=== PATIENT | female | born 1965 | race Caucasian/White ===

== ENCOUNTER 2022-04-23 10:51 | Emergency (ER) | payer OTHER, SELFPAY ==
[2022-04-23 11:08] VITALS: BP 145/85; PULSE 70; RESP 19; TEMP 36.6; O2SAT 98; BMI 24.9
[2022-04-23] MEDS: Lidocaine HCl 1 % MPF 2 ML VIAL INFILTRATI (12:08)
--- NOTE | 2022-04-23 12:11 | ED_ITS ---
HPI - Wound/Laceration General Chief Complaint: Wound/Laceration Stated Complaint: lump on neck Time Seen by Provider: 04/23/22 11:43 Source: patient Mode of arrival: ambulatory Limitations: no limitations History of Present Illness HPI narrative: This is a 56-year-old female who presents with redness and swelling on the right side of the neck for almost 2 weeks now. Patient reports she did have a lump there for quite time but over the last 2 weeks it has gotten more swollen and more red. She saw her primary care doctor and was placed on cephalexin and clindamycin. However continued symptoms. No fevers or chills. Related Data Previous Rx's Medication Instructions Recorded cephalexin 500 mg capsule 500 mg PO BID #10 caps 04/23/22 Allergies Allergy/AdvReac Type Severity Reaction Status Date / Time doxycycline Allergy Swelling Verified 04/23/22 11:45 Review of Systems Review of Systems: Yes all other systems are reviewed and are negative Constitutional: Constitutional: Reports no additional constitutional complaints, Denies body ache(s), Denies chills, Denies fever(s), Denies headache(s) and Denies weakness Eyes: Eyes: Reports no additional eye complaints and Denies change in vision ENT: Reports system reviewed and no additional complaints, except as documented, Denies dizziness, Denies headache(s), Denies nasal congestion, Denies nasal discharge and Denies neck pain Cardiovascular: Cardiovascular: Reports no additional cardiovascular complaints, Denies chest pain, Denies leg edema and Denies dyspnea Respiratory: Respiratory: Reports no additional respiratory complaints, Denies cough and Denies dyspnea Gastrointestinal: Gastrointestinal: Reports no additional gastrointestinal complaints, Denies abdominal pain, Denies diarrhea, Denies nausea and Denies vomiting Genitourinary: Genitourinary: Reports no additional female genitourinary complaints and Denies urinary incontinence Musculoskeletal: Musculoskeletal: Reports no additional musculoskeletal complaints, Denies back pain, Denies arthralgias, Denies joint swelling, Denies neck pain, Denies numbness and Denies tingling Integumentary/Breasts: Skin/Breast: Reports system reviewed and no additional complaints, except as docu, Reports erythema and Denies rash Neurologic: Reports system reviewed and no additional complaints, except as documented, Denies Abnormal speech present, Denies dizziness, Denies headache(s), Denies numbness, Denies tingling and Denies weakness [facility] Past Medical History Attestation statement: The following information was validated with the patient. Source: old records reviewed and nursing notes reviewed Social History Social History Advance Directives: No Advance Directives Information Provided: No Physical Exam Vital Signs: Vital Signs: Last Vital Signs Temp 98 F 04/23/22 11:08 Pulse 70 04/23/22 11:08 Resp 19 04/23/22 11:08 BP 145/85 H 04/23/22 11:08 Pulse Ox 98 04/23/22 11:08 BMI result Body Mass Index 24.9 Const: General: cooperative, healthy appearing, comfortable and no acute distress Orientation/consciousness: patient oriented x3 Limitations: no limitations HEENT: Head: Yes normal to inspection Head images: 1. There is a quarter-sized area of redness, swelling, central fluctuance and tenderness. There is no surrounding lymphadenopathy. Ears: hearing grossly normal bilaterally General nose exam: Normal external nose present Face and sinus: Yes normal facial exam Mouth: Normal oral and palatal mucosa present Throat: Yes posterior oropharynx normal Eyes: General: appearance normal, both eyes and all related structures Pupils: Equal, round and reactive pupils present Neck: Neck: Yes normal visual inspection Chest: Chest palpation & inspection: normal inspection of the chest Resp: Effort & Inspection: normal respiratory effort Auscultation: clear to auscultation bilaterally Cardio: Rate: regular rate Rhythm: regular rhythm Peripheral pulses: Peripheral pulses 2+ throughout GI: Inspection: Yes normal to inspection Palpation (GI): Soft to palpation and nontender Auscultation: normal bowel sounds Back/Spine/Pelvis: Thoracic/Lumbar Spine: thoracic and lumbar spine normal to inspection Skin: General skin exam: no rashes or lesions noted Neuro: General: patient oriented x3, no focal motor deficits and normal sensation to monofilament Cranial nerves: Yes Equal, round and reactive pupils present Cognition (Neuro): normal cognition Speech: No Abnormal speech present Gait exam (Neuro): Normal gait present Motor exam (neuro): 5/5 motor strength present throughout Extrem: General: Yes normal to inspection Course Course Course Narrative: See procedure note. Patient has underlying cyst. This will need removal by General surgery. Will refer. Will start patient on oral antibiotics. Reviewed worrisome signs and symptoms of when to return to the emergency room. Com fortable plan for discharge home. MDM - Wound/Laceration MDM Narrative Medical decision making narrative: Abscess to right neck. See procedure note for I&D Medical Records Attestation: I reviewed the patient's medical records. Lab Data Attestation: I reviewed the patient's lab results. Procedures Abscess I/D Site: neck Side (if applicable): right Local Anesthetic: lidocaine 1% Amount of anesthesia used (mL): 3 Technique: incised with blade Sent for culture/gram staining?: No Irrigation: No Packing used?: none Discharge Plan Discharge Clinical Impression: Abscess Patient Disposition: Home, Self-Care Instructions: Abscess (ED) Prescriptions: New cephalexin 500 mg capsule 500 mg PO BID Qty: 10 0RF Referrals: Ashutosh Gerardo MD [Physician] - 2 weeks Interventions: ED Discharge Assessment Last Done: 04/23/22 13:20 Discharge Date/Time: 04/23/22 13:21
== END 2022-04-23 13:21 | disposition home or self-care (01) ==
PROVIDERS: Emergency Provider Emergency Medicine; PCP Internal Medicine
DX: L02.11 Cutaneous abscess of neck (principal)
CPT/HCPCS: 10060; 99283; 99284

== ENCOUNTER 2024-02-14 13:06 | Outpatient (AMB) | payer OTHER, SELFPAY ==
--- NOTE | 2024-02-14 13:13 | AM.OFFWIN_ITS ---
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 patient states it started friday and it hurts to sit Patient Tobacco Use Status: Never used Tobacco Allergies doxycycline Allergy (Verified 02/14/24 13:18) Swelling Do you need a note to return to daycare/school/sports/work: No HPI HPI Comments History of Present Illness Details 50-year-old female who presents for abdo [place] pain. Patient has had lower abdominal pain since Friday. Patient has constant sometimes worse after eating also endorses diarrhea. Denies fever or chills. PFSH Social History Patient Tobacco Use Status: Never used Tobacco Physical Exam Vital Signs: Last Vital Signs Pulse 68 02/14/24 13:14 BP 122/70 02/14/24 13:14 Pulse Ox 98 02/14/24 13:14 BMI result Body Mass Index 25.7 Const General: cooperative, healthy appearing, no acute distress and alert Orientation/consciousness: patient oriented x3 Limitations: no limitations HEENT Head: Yes normal to inspection Ears: hearing grossly normal bilaterally General nose exam: Normal external nose present Resp Effort & Inspection: normal respiratory effort and able to speak in complete sentences Cardio Rate: regular rate GI Other: Exquisite left lower quadrant tenderness to palpation Skin General skin exam: no rashes or lesions noted Neuro General: patient oriented x3 Extrem General: Yes normal to inspection Assessment & Plan Assessment & Plan (1) Abdominal pain: Code(s): R10.9 - Unspecified abdominal pain Qualifiers: Abdominal location: left lower quadrant Qualified Code(s): R10.32 - Left lower quadrant pain Plan: Based on patient's findings symptoms of concern consideration would be diverticulitis. Positive consideration UTI verses other acute abdominal pathology. Given tenderness to palpation in the left lower quadrant would recommend patient presents to the emergency department for further evaluation and CT scan. Medications: Discontinued cephalexin Discontinued Reason: Patient Completed Course 500 mg PO BID 10 caps 0RF Coding Level of Care Code New Pt Level 3 (11256) Diagnoses Left lower quadrant abdominal pain R10.32 Abdominal location: left lower quadrant
[2024-02-14 13:14] VITALS: BP 122/70; PULSE 68; O2SAT 98; BMI 25.7
== END 2024-02-14 13:50 | disposition home or self-care (01) ==
PROVIDERS: PCP Internal Medicine; Visit Provider Physician Assistant
DX: R10.32 Left lower quadrant pain (principal)
CPT/HCPCS: 99203

== ENCOUNTER 2024-02-14 14:02 | Observation (INO) | payer OTHER, SELFPAY ==
[2024-02-14] VITALS (7 sets, daily range): BP systolic 109–147; BP diastolic 46–75; PULSE 82–123; RESP 14–18; TEMP 36.6–37.2; O2SAT 96–99; BMI 26.6
--- NOTE | ~2024-02-14 | CT_ITS ---
EXAMINATION: CT ABDOMEN AND PELVIS WITH CONTRAST CLINICAL INFORMATION: Abdominal pain COMPARISON: None TECHNIQUE: Multidetector volumetric CT imaging of the abdomen and pelvis was obtained after the administration of 85 mL of Omnipaque 300 intravenous contrast without immediate adverse reactions. Axial MIP volume rendering provided. Sagittal and coronal reformatted images were obtained. This CT examination was performed using dose optimization techniques as appropriate, variously including the following: *Automated exposure control *Adjustment of mA and/or kV according to patient size (this includes techniques or standardized protocols for targeted exams where dose is matched to indication/reason for exam; i.e. extremities or head) *Use of iterative reconstruction technique DLP: 597 mGy-cm FINDINGS: LUNGS: Calcified granulomas in the lung base. LIVER, GALLBLADDER, AND BILIARY TREE: The liver is normal in size, shape, and attenuation. There are no focal hepatic lesions. There is no intra or extrahepatic bile duct dilation. The gallbladder is unremarkable with no evidence of radiopaque gallstones, gallbladder wall thickening, or obvious pericholecystic inflammatory changes. PANCREAS: Unremarkable SPLEEN: Unremarkable ADRENAL GLANDS: Unremarkable KIDNEYS AND URETERS: The kidneys are normal in size, shape, and attenuation. No hydronephrosis, hydroureter, or calculi seen. No perinephric stranding. BLADDER: Unremarkable GASTROINTESTINAL TRACT: Sigmoid diverticulosis. No diverticulitis. The large and small bowel are normal in caliber. The appendix is borderline thickened with inflammatory stranding around the tip. ABDOMINAL WALL: No significant hernia is appreciated. LYMPH NODES: Normal PERITONEUM: No free intraperitoneal fluid or air. VASCULAR: Unremarkable PELVIC VISCERA: Unremarkable OSSEOUS STRUCTURES: Unremarkable CT/CT abdomen pelvis w IV con IMPRESSION: The appendix is borderline thickened with inflammatory stranding around the tip. Findings are concerning for early appendicitis. Electronically signed by: Uli Meade MD 02/14/2024 05:29 PM EDT
--- NOTE | 2024-02-14 14:19 | ED_ITS ---
HPI - Abdominal Pain General Chief Complaint: Abdominal Pain Stated Complaint: [facility] sent over for a Ct Time Seen by Provider: 02/14/24 16:25 Source: patient Mode of arrival: ambulatory Limitations: no limitations History of Present Illness ED Provider: Sandy Lovell PA-C HPI narrative: Patient is a 58 year old assigned female at with no reported medical history presenting to the emergency department today with abdominal pain. Patient states that over the last 3 days she has had left lower abdominal pain with diarrhea. Patient states that she was seen by her PCP and instructed to come to the ER for a CT scan. Patient denies any dizziness, lightheadedness, nausea, vomiting, fever, chills, blurry vision, double vision, loss of vision, chest pain, difficulty breathing, shortness of breath, back pain, night sweats, pain with urination, increased urinary frequency, increased urinary urgency, blood in her urine or stool, syncope or a near syncopal episode, recent trauma or falls, bowel incontinence, bladder incontinence, or any other complaints at this time. MD elicited complaint: abdominal pain Onset (ago): day(s) (3) Pain Consistency: constant Location: LLQ Radiation: none Relieving factors: nothing Associated symptoms: diarrhea Related Data Home Medications ?Medication ?Instructions ?Recorded ?Confirmed No Known Home Meds 02/14/24 02/14/24 Allergies Allergy/AdvReac Type Severity Reaction Status Date / Time doxycycline Allergy Swelling Verified 02/14/24 14:20 Review of Systems Constitutional: Reports no additional constitutional complaints, Denies chills, Denies fever(s) and Denies night sweats Eyes: Reports no additional eye complaints, Denies blurry vision, Denies change in vision, Denies diplopia, Denies eye discharge, Denies loss of vision and Denies eye pain Denies dizziness Cardiovascular: Reports no additional cardiovascular complaints, Denies chest pain, Denies lightheadedness, Denies Loss of Consciousness and Denies dyspnea Respiratory: Reports no additional respiratory complaints and Denies dyspnea Gastrointestinal: Reports no additional gastrointestinal complaints, Reports abdominal pain, Denies melena, Denies hematochezia, Denies change in bowel habits, Denies change in stool character and Reports diarrhea Genitourinary: Denies hematuria, Denies urinary frequency, Denies dysuria, Denies urinary incontinence, Denies urinary hesitancy and Denies urinary urgency Musculoskeletal: Reports no additional musculoskeletal complaints, Denies numbness and Denies tingling Denies dizziness, Denies loss of vision, Denies numbness and Denies tingling Psychiatric: Reports no additional psychiatric complaints Endocrine: Reports no additional endocrine complaints Hematologic/Lymphatic: Reports no additional hematologic/lymphatic complaints Allergic/Immunologic: Reports no additional allergic/immunologic complaints [facility] Past Medical History Attestation statement: The following information was validated with the patient. Source: old records reviewed and nursing notes reviewed Social History Social History Patient Tobacco Use Status: Never used Tobacco Smoked in Last 30 Days: No Use of substances other than those prescribed or required for medical reasons: No Advance Directives: No Advance Directives Information Provided: No Do you have a plan to hurt others: No Plan Patient : No Physical Exam ED Vital Signs: Vital Signs - 24 hr 02/14/24 14:19 02/14/24 16:22 02/14/24 16:25 Temperature 98.7 F 98.7 F 98.7 F Pulse Rate 123 H 82 84 Respiratory Rate 18 16 16 Blood Pressure 123/71 137/46 L 137/49 L Pulse Oximetry 99 98 97 Oxygen Delivery Method Room Air Room Air Room Air 02/14/24 16:43 02/14/24 18:00 Temperature 98.4 F Pulse Rate 82 Respiratory Rate 14 14 Blood Pressure 130/75 Pulse Oximetry 99 Oxygen Delivery Method Room Air BMI result Body Mass Index 26.6 Const General: cooperative, no acute distress, alert and awake Nutritional Appearance: well nourished Orientation/consciousness: patient oriented x3 Limitations: no limitations [facility] Head: Yes normal to inspection and Yes atraumatic Ears: hearing grossly normal bilaterally and external ears normal General nose exam: Normal external nose present, no nasal discharge noted and no epistaxis Face and sinus: Yes normal facial exam, No abrasion and No laceration Mouth: Normal oral and palatal mucosa present, no drooling and no muffled voice Eyes General: appearance normal, both eyes and all related structures Periorbital: periorbital findings normal Eyelids: Yes eyelids normal Conjunctivae: conjunctivae normal Pupils: Equal, round and reactive pupils present EOM: EOMs intact bilaterally Neck Neck: Yes normal visual inspection, Yes full ROM and Yes no lymphadenopathy Chest Chest palpation & inspection: normal inspection of the chest Resp Effort & Inspection: normal respiratory effort and able to speak in complete sentences GI Inspection: Yes normal to inspection Palpation (GI): Soft to palpation, not firm, Tenderness to palpation present (GI) in the LLQ, no guarding and not rigid Neuro General: patient oriented x3 and moves all extremities Cranial nerves: Yes Equal, round and reactive pupils present Cognition (Neuro): normal cognition Extrem General: Yes normal to inspection, Yes full ROM and Yes capillary refill normal Psych Appearance: grossly normal Mental Status: mental status grossly normal Affect: normal affect Attitude: cooperative Thought process: Normal thought process present Thought content: Normal thought content present Insight: Good insight present (Psych) Course Course Course Narrative: This is a rapid medical exam. Deferred additional HPI, ROS, PE to primary provider. 58 yo female here with LLQ abdominal pain, diarrhea since Friday, sent over from [facility] walk in with concern for diverticulitis. No vomiting/fever. No medical or abdominal surgical history. Will need labs, UA, likely CT JAMILAS -Sugey Reyes APRN Medical Decision Making Medical Decision Making MDM Narrative: Patient is a 58 year old assigned female at with no reported medical history presenting to the emergency department today with LLQ abdominal pain. Patient's physical exam was as noted in the physical exam portion of this note. Patient's blood work was unremarkable. Patient's urine showed no acute process. Patient's CT abd/pelvis showed early acute appendicitis. I spoke to Dr. Franco who recommended admission to his service. I explained my physical exam findings as well as all test results to the patient. I answered all questions asked by the patient. Patient verbalized agreement and understanding with this treatment plan and admission. Differential Diagnosis Differential Diagnoses: The differential diagnosis associated with the presentation includes appendicitis abdominal pain diverticulitis Admission/Observation Consideration of admission/observation: Escalation of care including admission/observation considered Patient admitted. Consult Healthcare Provider Management of the patient was discussed with: Javascript Front End Developer (spoke to Dr. Franco, the general surgeon, as noted in the MDM Rationale portion of this note.) Lab Data [facility] Lab Attestation statement: I reviewed the patient's lab results. My interpretation of these results are in the MDM Rationale portion of this note. 02/14/24 14:35 02/14/24 14:35 Labs: Lab Results 08/24/24 08/24/24 Range/Units 14:35 18:17 WBC 6.2 (4.8-10.8) X10*3/uL RBC 4.43 (4.20-5.50) X10*6/uL Hgb 14.1 (12.0-16.0) g/dl Hct 41.1 (37.0-47.0) % MCV 92.8 (80.0-98.0) fL MCH 31.8 (27.0-33.0) pg MCHC 34.3 (31.0-35.0) g/dl RDW 13.2 (11.0-16.0) % Plt Count 195 (160-400) X10*3/uL MPV 10.5 (9.4-12.3) fL Immature Gran % (Auto) 0.3 (0.0-0.4) % Neut % (Auto) 68.0 (45-73) % Lymph % (Auto) 16.4 L (20-40) % [place] % (Auto) 13.2 H (2-11) % Eos % (Auto) 1.8 (0-4) % Baso % (Auto) 0.3 (0-2) % Lymph # (Auto) 1.0 L (1.2-4.9) X10*3/uL [place] # (Auto) 0.8 (0.1-1.2) X10*3/uL Eos # (Auto) 0.1 (0.0-0.4) X10*3/uL Baso # (Auto) 0.0 (0.0-0.2) X10*3/uL Abs Immat Gran (auto) 0.02 (0.00-0.03) X10*3/uL Absolute Neuts (auto) 4.2 (2.0-8.3) x10*3/uL Absolute Nucleated RBC 0.000 (0.0-0.012) X10*3/uL Nucleated RBC % (auto) 0.0 (0.0-0.2) /100WBC Sodium 145 (135-145) mmol/L Potassium 4.2 (3.3-5.1) mmol/L Chloride 108 (96-108) mmol/L Carbon Dioxide 26 (22-29) mmol/L Anion Gap 15 (12-20) BUN 14 (9-16) mg/dL Creatinine 0.94 (0.5-1.4) mg/dL Estim Creat Clear Calc 60.4 Estimated GFR > 60 Random Glucose 96 (60-115) mg/dL Calcium 9.4 (8.4-10.2) mg/dL Total Bilirubin 0.6 (0.0-1.0) mg/dL Direct Bilirubin 0.2 (0.0-0.5) mg/dL AST 49 H (5-31) U/L ALT 45 H (0-31) U/L Alkaline Phosphatase 94 (39-117) U/L Total Protein 7.2 (6.5-8.0) g/dL Albumin 4.1 (3.5-5.0) g/dL Lipase 20 (8-78) U/L Urine Color Yellow Urine Appearance Clear Urine pH 5.5 (5.0-9.0) Ur Specific [place] >= 1.030 H (1.005-1.025) Urine Protein 30 (1+) H (Neg-Trace) mg/dL Urine Glucose (UA) Negative (Negative) mg/dL Urine Ketones Negative (Negative) mg/dL Urine Blood Negative (Negative) Urine Nitrite Positive H (Negative) Ur Leukocyte Esterase Negative (Negative) Urine RBC 3-5 H (0-2) /HPF Urine WBC 0-5 (0-5) /HPF Ur Squamous Epith Cells 3-5 (0-2) /HPF Urine Bacteria 4+ (None Seen) Hyaline Casts 0-2 (0-2) /LPF Independent Interpretation I performed an independent interpretation of an: CT Scan Interpretation: My interpretation is in agreement with the radiologist's impression of this imaging study. - EXAMINATION: CT ABDOMEN AND PELVIS WITH CONTRAST CLINICAL INFORMATION: Abdominal pain COMPARISON: None TECHNIQUE: Multidetector volumetric CT imaging of the abdomen and pelvis was obtained after the administration of 85 mL of Omnipaque 300 intravenous contrast without immediate adverse reactions. Axial MIP volume rendering provided. Sagittal and coronal reformatted images were obtained. This CT examination was performed using dose optimization techniques as appropriate, variously including the following: *Automated exposure control *Adjustment of mA and/or kV according to patient size (this includes techniques or standardized protocols for targeted exams where dose is matched to indication/reason for exam; i.e. extremities or head) *Use of iterative reconstruction technique DLP: 597 mGy-cm FINDINGS: LUNGS: Calcified granulomas in the lung base. LIVER, GALLBLADDER, AND BILIARY TREE: The liver is normal in size, shape, and attenuation. There are no focal hepatic lesions. There is no intra or extrahepatic bile duct dilation. The gallbladder is unremarkable with no evidence of radiopaque gallstones, gallbladder wall thickening, or obvious pericholecystic inflammatory changes. PANCREAS: Unremarkable SPLEEN: Unremarkable ADRENAL GLANDS: Unremarkable KIDNEYS AND URETERS: The kidneys are normal in size, shape, and attenuation. No hydronephrosis, hydroureter, or calculi seen. No perinephric stranding. BLADDER: Unremarkable GASTROINTESTINAL TRACT: Sigmoid diverticulosis. No diverticulitis. The large and small bowel are normal in caliber. The appendix is borderline thickened with inflammatory stranding around the tip. ABDOMINAL WALL: No significant hernia is appreciated. LYMPH NODES: Normal PERITONEUM: No free intraperitoneal fluid or air. VASCULAR: Unremarkable PELVIC VISCERA: Unremarkable OSSEOUS STRUCTURES: Unremarkable CT/CT abdomen pelvis w IV con IMPRESSION: The appendix is borderline thickened with inflammatory stranding around the tip. Findings are concerning for early appendicitis. Electronically signed by: Uli Meade MD 02/14/2024 05:29 PM EDT Dictated By: Uli Meade MD Signed By: Electronically signed by Uli Meade MD 02/14/24 8080 Radiology Impression Discussion of test interpretation with radiology: I have reviewed the radiologist's reading. Medications Administered Discontinued Medications Generic Name Dose Route Start Last Admin Trade Name Samantha PRN Reason Stop Dose Admin Ceftriaxone Sodium 1 gm/ 50 mls @ 100 mls/hr 02/14/24 17:39 02/14/24 18:25 Sodium Chloride IV 02/14/24 18:08 100 mls/hr ONCE ONE Administration Iohexol 85 ml 02/14/24 17:14 02/14/24 17:15 Iohexol 350 Mg/Ml 100 Ml Infus..Btl IV 02/14/24 17:15 85 ml ONCE ONE Administration Morphine Sulfate 4 mg 02/14/24 16:31 02/14/24 16:43 Morphine Sulfate 4 Mg/Ml Cartridge IVPUSH 02/14/24 16:32 4 mg ONCE ONE Administration Protocol Ondansetron HCl 4 mg 02/14/24 16:31 02/14/24 16:43 Ondansetron Hcl 4 Mg/2 Ml Vial IVPUSH 02/14/24 16:32 4 mg ONCE ONE Administration Critical Care Time Critical Care Time Critical Care Time: Yes Total Critical Care Time: 38 Attestation: I spent 38 minutes of Critical Care Time with this patient. This does not include time spent on separately reported billable procedures. Discharge Plan Discharge Clinical Impression: Acute appendicitis Patient Disposition: Admitted As Inpatient Print Language: Lao
[2024-02-14 14:39] LABS: MANUAL DIFF FLAG NO
[2024-02-14 14:42] LABS: Basophils Percent Auto 0.3 % (0-2); Eosinophils Absolute Auto 0.1 X10*3/uL (0.0-0.4); Eosinophils Percent Auto 1.8 % (0-4); Hematocrit 41.1 % (37.0-47.0); Hemoglobin 14.1 g/dl (12.0-16.0); Imm Gran Abs Auto 0.02 X10*3/uL (0.00-0.03); Imm Gran Pct Auto 0.3 % (0.0-0.4); Lymphocytes Percent Auto 16.4 % (20-40); Mean Corpuscular HGB Conc 34.3 g/dl (31.0-35.0); Mean Corpuscular Hemoglobin 31.8 pg (27.0-33.0); Mean Corpuscular Volume 92.8 fL (80.0-98.0); Mean Platelet Volume 10.5 fL (9.4-12.3); Monocytes Absolute Auto 0.8 X10*3/uL (0.1-1.2); Monocytes Percent Auto 13.2 % (2-11); Neutrophils Absolute Auto 4.2 x10*3/uL (2.0-8.3); Platelet Count 195 X10*3/uL (160-400); Red Blood Count 4.43 X10*6/uL (4.20-5.50); Red Cell Distribution Width 13.2 % (11.0-16.0); White Blood Count 6.2 X10*3/uL (4.8-10.8)
[2024-02-14 14:54] LABS: Alanine Aminotransferase 45 U/L (0-31); Albumin Level 4.1 g/dL (3.5-5.0); Alkaline Phosphatase 94 U/L (39-117); Anion Gap 15 (12-20); Aspartate Amino Transferase 49 U/L (5-31); Bilirubin Direct 0.2 mg/dL (0.0-0.5); Bilirubin Total 0.6 mg/dL (0.0-1.0); Blood Urea Nitrogen 14 mg/dL (9-16); Calcium 9.4 mg/dL (8.4-10.2); Carbon Dioxide 26 mmol/L (22-29); Chloride 108 mmol/L (96-108); Creatinine Clr Calc Pharmacy 60.4; Estimated Glomerular Filt Rate > 60; Glucose Random 96 mg/dL (60-115); Lipase 20 U/L (8-78); Potassium 4.2 mmol/L (3.3-5.1); Sodium 145 mmol/L (135-145); Total Protein 7.2 g/dL (6.5-8.0)
--- NOTE | 2024-02-14 16:36 | PC.NURSE ---
Pt comes to ED for Abd pain since Friday. Pain is 7/10 and cramping in nature to the LLQ. Denies any history of this type of pain prior to today. Last BM was today and was diarrhea. 20g LAC. Pt awaiting CT.
[2024-02-14] MEDS: Morphine Sulfate 4 MG/ML CARTRIDGE IVPUSH (16:43)
[2024-02-14] MEDS: ondansetron HCL 4 MG/2 ML VIAL IVPUSH (16:43)
[2024-02-14] MEDS: iohexoL 350 MG/ML 100 ML INFUS..BTL 85 ML IV (17:15)
[2024-02-14 18:23] LABS: Appearance Urine Clear; Color Urine Yellow; Glucose Urine UA Negative (Negative); Leukocyte Esterase Urine Negative (Negative); Nitrite Urine Positive (Negative); PH 5.5 (5.0-9.0); Specific Gravity - Urine >= 1.030 (1.005-1.025); UMIC TRIGGER UACC YES; Urine Blood Negative (Negative); Urine Ketones Negative (Negative); Urine Protein 30 (1+) mg/dL (Neg-Trace)
[2024-02-14] MEDS: cefTRIAXone sodium 1 GM in 0.9 % Sodium Chloride 50 ML IV (18:25)
--- NOTE | 2024-02-14 18:28 | PHA.MEDREC ---
Pharmacy Consult ? Medication Reconciliation Pharmacy has completed the medication reconciliation.
[2024-02-14 18:31] LABS: Bacteria Urine 4+ (None Seen); Hyaline Casts Urine 0-2 /LPF (0-2); UACC Culture Trigger YES; WBC Urine 0-5 /HPF (0-5)
[2024-02-14] MEDS: Lactated Ringers 1,000 ML 100 ML IVCONT (21:32)
[2024-02-14] MEDS: Acetaminophen 325 MG TABLET 650 MG PO (21:37)
[2024-02-15] VITALS (8 sets, daily range): BP systolic 121–139; BP diastolic 58–82; PULSE 70–90; RESP 16–18; TEMP 36.2–36.8; O2SAT 91–97; BMI 28.3
[2024-02-15] MEDS: Lactated Ringers 1,000 ML 100 ML IVCONT (07:27)
[2024-02-15] MEDS: 0.9 % Sodium Chloride Flush 3 ML SYRINGE IVFLUSH (07:28)
--- NOTE | 2024-02-15 13:07 | P.CONAN_ITS ---
HPI - Anesthesia Eval Consult details Narrative: aCUTE APPENDICITIS PMFSH Active Problems Active Problems: All Active Problems Acute appendicitis (Acute) Family History Family history of problems with anesthesia: No Surgical History History of Problems with Anesthesia: No Social History Social History Household Members: Spouse and Family Housing: House Do you presently have visiting nurse or other home services: No Patient Tobacco Use Status: Former Tobacco user Tobacco use type: Cigarette Smoked in Last 30 Days: No Patient Interested in Nicotine Replacement: No Patient Given Instructions on How to Stop Smoking: No Second Hand Smoke Exposure: No Use of substances other than those prescribed or required for medical reasons: No Currently Displaying Signs/Symptoms of Drug Intoxication Withdrawal: No Any prior treatment program specific to substance use: No Have you been hit, kicked, punched, or otherwise hurt by someone within the past year? If so, by whom?: No Do you feel safe in your current relationship?: Yes Is there a partner from a previous relationship who is making you feel unsafe now?: No Are you made to feel afraid or neglected: No Advance Directives: No Advance Directives Information Provided: No Advance Directives on File: No Do you have a plan to hurt others: No Plan Recently lost weight without trying: No Eating poorly because of decreased appetite: No Nutrition Risks: No Nutritional Risk Patient : No : No Poor oral hygiene: No Meds Allergies Allergy/AdvReac Type Severity Reaction Status Date / Time doxycycline Allergy Swelling Verified 02/14/24 14:20 Active Medications: Current Medications Acetaminophen (Acetaminophen 325 Mg Tablet) 650 mg PO Q6H PRN PRN Reason: Pain, Mild (Pain Scale 1-3), fever or headache Last Admin: 02/14/24 21:37 Dose: 650 mg Al Hydroxide/Mg Hydroxide (Magnesium Hydrox/Alum Hydrox 30 Ml Oral.Susp) 30 ml PO Q4H PRN PRN Reason: Heartburn Calcium Carbonate (Calcium Carbonate 750 Mg Tab.Chew) 750 mg PO Q4H PRN PRN Reason: Heartburn Hydromorphone HCl (Hydromorphone Hcl 0.5 Mg/0.5 Ml Syringe) 0.5 mg IVPUSH Q4H PRN; Protocol PRN Reason: Pain, Severe (Pain Scale 7-10) Lactated Ringer's (Lr) 1,000 mls @ 100 mls/hr IVCONT .Q10H COUNT INCLUDES THE [facility] Last Admin: 02/15/24 07:27 Dose: 100 mls/hr Magnesium Hydroxide (Milk Of Magnesia 30 Ml Oral.Susp) 30 ml PO DAILY PRN PRN Reason: Constipation Melatonin (Melatonin 3 Mg Tablet) 6 mg PO BEDTIME PRN PRN Reason: Insomnia Ondansetron HCl (Ondansetron Hcl 4 Mg/2 Ml Vial) 4 mg IVPUSH Q8H PRN PRN Reason: Nausea and Vomiting Sodium Chloride (0.9 % Sodium Chloride Flush 3 Ml Syringe) 3 ml IVFLUSH QSHIFT COUNT INCLUDES THE [facility] Last Admin: 02/15/24 07:28 Dose: 3 ml Home Medications ?Medication ?Instructions ?Recorded ?Confirmed ?Last Taken ?Type No Known Home Meds 02/14/24 02/14/24 Unknown History Exam Height,Weight and Vital Signs: Height 5 ft 3 in Weight 72.6 kg Last Vital Signs Temp 98.1 F 02/15/24 09:13 Pulse 72 02/15/24 09:13 Resp 16 02/15/24 09:13 BP 121/60 02/15/24 09:13 Pulse Ox 96 02/15/24 09:13 O2 Del Method Room Air 02/15/24 09:13 Pertinent Lab Results Pertinent Lab Results: Laboratory Tests 02/14/24 02/14/24 14:35 18:17 WBC 6.2 RBC 4.43 Hgb 14.1 Hct 41.1 MCV 92.8 MCH 31.8 MCHC 34.3 RDW 13.2 Plt Count 195 MPV 10.5 Immature Gran % (Auto) 0.3 Neut % (Auto) 68.0 Lymph % (Auto) 16.4 L Andrew % (Auto) 13.2 H Eos % (Auto) 1.8 Baso % (Auto) 0.3 Lymph # (Auto) 1.0 L Andrew # (Auto) 0.8 Eos # (Auto) 0.1 Baso # (Auto) 0.0 Abs Immat Gran (auto) 0.02 Absolute Neuts (auto) 4.2 Absolute Nucleated RBC 0.000 Nucleated RBC % (auto) 0.0 Sodium 145 Potassium 4.2 Chloride 108 Carbon Dioxide 26 Anion Gap 15 BUN 14 Creatinine 0.94 Estim Creat Clear Calc 60.4 Estimated GFR > 60 Random Glucose 96 Calcium 9.4 Total Bilirubin 0.6 Direct Bilirubin 0.2 AST 49 H ALT 45 H Alkaline Phosphatase 94 Total Protein 7.2 Albumin 4.1 Lipase 20 Urine Color Yellow Urine Appearance Clear Urine pH 5.5 Ur Specific [place] >= 1.030 H Urine Protein 30 (1+) H Urine Glucose (UA) Negative Urine Ketones Negative Urine Blood Negative Urine Nitrite Positive H Ur Leukocyte Esterase Negative Urine RBC 3-5 H Urine WBC 0-5 Ur Squamous Epith Cells 3-5 Urine Bacteria 4+ Hyaline Casts 0-2 Airway Mallampati Class: I Neck ROM: Full Denture: Upper and Lower Loose/Missing/Broken Teeth: No Heart: rrr Lungs: CTA Assessment and Plan Assessment Anesthesia Assessment: Anesthesia Plan Discussed and Chart Reviewed Final Anesthetic Review Family History of Problems with Anesthesia: No History of Problems with Anesthesia: No NPO: Yes ASA Class: I and Emergency Final Preanesthetic Review: No Changes in Pt Med Stat, Meds/Allgs Chart Reviewed, Consent Obtained/Reviewed and Anes Risks/Benef Reviewed Patient Risk: Low Procedure Risk: Intermediate Anesthetic Plan Anesthetic Plan: GA Disposition: Standard PACU
--- NOTE | 2024-02-15 13:11 | PM.HPGS ---
History of Present Illness History of Present Illness Date of Service: 02/15/24 Chief complaint: abd pain Narrative: Monica Cummings is a 58 year old female who presents with a proximally 2 to three-day history of progressively worsening lower abdominal pain. Because of progression of symptoms she presents to the emergency department. Workup by the staff demonstrated right lower quadrant tenderness and a CT scan consistent with early appendicitis. Patient is otherwise very healthy. She has no prior issues of GI complaints. This episode has some early diarrhea. She otherwise has regular bowel habits. No unusual contacts. No recent foreign travel. No new meds. No sick contacts Chart was reviewed and patient evaluate [facility] Social History Social History Household Members: Spouse and Family Housing: House Do you presently have visiting nurse or other home services: No Patient Tobacco Use Status: Former Tobacco user Tobacco use type: Cigarette Smoked in Last 30 Days: No Patient Interested in Nicotine Replacement: No Patient Given Instructions on How to Stop Smoking: No Second Hand Smoke Exposure: No Use of substances other than those prescribed or required for medical reasons: No Currently Displaying Signs/Symptoms of Drug Intoxication Withdrawal: No Any prior treatment program specific to substance use: No Have you been hit, kicked, punched, or otherwise hurt by someone within the past year? If so, by whom?: No Do you feel safe in your current relationship?: Yes Is there a partner from a previous relationship who is making you feel unsafe now?: No Are you made to feel afraid or neglected: No Advance Directives: No Advance Directives Information Provided: No Advance Directives on File: No Do you have a plan to hurt others: No Plan Recently lost weight without trying: No Eating poorly because of decreased appetite: No Nutrition Risks: No Nutritional Risk Patient : No : No Poor oral hygiene: No Meds Allergies Allergy/AdvReac Type Severity Reaction Status Date / Time doxycycline Allergy Swelling Verified 02/14/24 14:20 Active Medications: Current Medications Acetaminophen (Acetaminophen 325 Mg Tablet) 650 mg PO Q6H PRN PRN Reason: Pain, Mild (Pain Scale 1-3), fever or headache Last Admin: 02/14/24 21:37 Dose: 650 mg Al Hydroxide/Mg Hydroxide (Magnesium Hydrox/Alum Hydrox 30 Ml Oral.Susp) 30 ml PO Q4H PRN PRN Reason: Heartburn Calcium Carbonate (Calcium Carbonate 750 Mg Tab.Chew) 750 mg PO Q4H PRN PRN Reason: Heartburn Hydromorphone HCl (Hydromorphone Hcl 0.5 Mg/0.5 Ml Syringe) 0.5 mg IVPUSH Q4H PRN; Protocol PRN Reason: Pain, Severe (Pain Scale 7-10) Lactated Ringer's (Lr) 1,000 mls @ 100 mls/hr IVCONT .Q10H [facility] Last Admin: 02/15/24 07:27 Dose: 100 mls/hr Cefazolin Sodium/Dextrose (Ancef) 2 gm in 50 mls @ 100 mls/hr IV PREOP ONE Stop: 02/15/24 13:39 Magnesium Hydroxide (Milk Of Magnesia 30 Ml Oral.Susp) 30 ml PO DAILY PRN PRN Reason: Constipation Melatonin (Melatonin 3 Mg Tablet) 6 mg PO BEDTIME PRN PRN Reason: Insomnia Ondansetron HCl (Ondansetron Hcl 4 Mg/2 Ml Vial) 4 mg IVPUSH Q8H PRN PRN Reason: Nausea and Vomiting Sodium Chloride (0.9 % Sodium Chloride Flush 3 Ml Syringe) 3 ml IVFLUSH QSHIFT [facility] Last Admin: 02/15/24 07:28 Dose: 3 ml Home Medications ?Medication ?Instructions ?Recorded ?Confirmed ?Last Taken ?Type No Known Home Meds 02/14/24 02/14/24 Unknown History Physical Exam Vital Signs: Vital Signs: Last Vital Signs Temp 98.1 F 02/15/24 09:13 Pulse 72 02/15/24 09:13 Resp 16 02/15/24 09:13 BP 121/60 02/15/24 09:13 Pulse Ox 96 02/15/24 09:13 O2 Del Method Room Air 02/15/24 09:13 BMI result Body Mass Index 28.3 Chest: Other: Chest breath sounds bilaterally, HS 1 in 2 GI: Other: Mildly corpulent, soft. Localized right lower quadrant rebound tenderness. No evidence of any guarding, generalized rebound or rigidity. Results Results Labs: Short CBC 02/14/24 Range/Units 14:35 WBC 6.2 (4.8-10.8) X10*3/uL Hgb 14.1 (12.0-16.0) g/dl Hct 41.1 (37.0-47.0) % Plt Count 195 (160-400) X10*3/uL BMP 02/14/24 14:35 Sodium 145 Potassium 4.2 Chloride 108 Carbon Dioxide 26 BUN 14 Creatinine 0.94 Calcium 9.4 Liver Function 02/14/24 Range/Units 14:35 Total Bilirubin 0.6 (0.0-1.0) mg/dL Direct Bilirubin 0.2 (0.0-0.5) mg/dL AST 49 H (5-31) U/L ALT 45 H (0-31) U/L Alkaline Phosphatase 94 (39-117) U/L Albumin 4.1 (3.5-5.0) g/dL Urine 02/14/24 Range/Units 18:17 Urine Color Yellow Urine Appearance Clear Urine pH 5.5 (5.0-9.0) Ur Specific [place] >= 1.030 H (1.005-1.025) Urine Protein 30 (1+) H (Neg-Trace) mg/dL Urine Glucose (UA) Negative (Negative) mg/dL Assessment and Plan (1) Acute appendicitis: Qualifiers: Acute appendicitis type: unspecified acute appendicitis type Qualified Code(s): K35.80 - Unspecified acute appendicitis Status: Acute Plan Risks, benefits, alternatives laparoscopic possible open appendectomy were reviewed with the patient and included but not limited to bleeding, infection, numbness, pain, scarring, bowel or bladder injury or leak and the patient wishes to proceed. All questions answered. Arrangements were made for this as an add on for today. Quality Stroke Does the patient have a stroke diagnosis?: No VTE Prior VTE?: No VTE Risk Level:: Surgical - low VTE Device Contraindication: N/A - Device Ordered VTE Drug Contraindication: Treatment Not Indicated Procedures Date of Service Date of Service: 02/15/24
--- NOTE | 2024-02-15 14:15 | W.PM.OPN ---
Operative Note Operative Note Date of Service: 02/15/24 Narrative: Preoperative diagnosis: [] Acute appendicitis Postop diagnosis: [] The same Procedure [] laparoscopic appendectomy Surgeon: [] Salvador Child Psychology Teacher: [] Type of Anesthesia: [] General Indication for surgery: [] Distal portion of appendix edematous and inflamed. Situated in the right pelvic brim. No gross evidence of perforation. Moderately corpulent abdomen. Findings: [] Patient brought to the operating room, placed on operative table supine position, after an adequate level of general anesthesia was induced, the patient's abdomen was prepped and draped in usual sterile fashion. Using a supraumbilical curvilinear incision, Garcia technique was used to insufflate abdominal cavity to 15 mm of CO2. Lower midline suprapubic ports were placed under direct laparoscopic view, the patient placed in Trendelenburg position, and tilted to the left. Findings were as noted above. Appendix was grasped and brought onto the field. It is mesentery was sequentially taken down using double firing of ligature device. Appendix was then transected at the cecal base using endoscopic MARCIA stapler. Appendix was removed in a piecemeal fashion secondary to its macerated state and placed in Endo-Catch bag and retrieved through the umbilical port. Abdominal cavity was copiously irrigated and secured hemostasis. All ports removed under direct laparoscopic view. Wounds were closed in the following manner; umbilical wound has fascia reapproximated using interrupted 0 Vicryl suture. Skin wounds were closed using subcuticular 4-0 Vicryl sutures followed by Steri-Strips and sterile dressings. Wounds were infiltrated 0.5% Marcaine at completion. Sponge, needle, and instrument counts reported correct. Patient tolerated the procedure well and emerged from anesthesia stable condition. EBL minimal
--- NOTE | 2024-02-15 15:04 | P.DS_ITS ---
DS: Providers Provider Date of Service: 02/15/24 Date of admission: 02/14/24 21:07 Date of discharge: 02/15/24 Primary care physician: Ashutosh Asif MD Attending physician on admission: Aly Franco Attending physician on discharge: Aly Franco DS: Diagnosis Discharge Diagnosis (1) Acute appendicitis: Status: Acute DS: Summary Hospital Course Hospital Course: HPI AT ADMISSION: Monica Cummings is a 58 year old female who presents with a proximally 2 to three-day history of progressively worsening lower abdominal pain. Because of progression of symptoms she presents to the emergency department. Workup by the staff demonstrated right lower quadrant tenderness and a CT scan consistent with early appendicitis. Patient is otherwise very healthy. She has no prior issues of GI complaints. This episode has some early diarrhea. She otherwise has regular bowel habits. No unusual contacts. No recent foreign travel. No new meds. No sick contacts. Chart was reviewed and patient evaluated. HOSPITAL COURSE: The patient was admitted to the surgical service for further treatment of the acute appendicitis. She elected to proceed with laparoscopic appendectomy. She was added onto the OR schedule for that day. On 02/15/24, a laparoscopic appendectomy was performed by Dr. Franco without complication. The patient tolerated the procedure well. She had an uncomplicated recovery course. Later in the afternoon following the procedure, she felt well and was tolerating a solid diet without nausea or vomiting, had good pain control and was ambulating without difficulty. She was hemodynamically stable. Her abdomen was benign with appropriate post op tenderness. She felt ready for discharge. She was discharged to home on 02/15/24 in stable condition. She is to follow up in the office in 1 week. Status at Discharge Functional status at discharge: independent ambulation Overall status at discharge: patient is progressing back to baseline Time Attestation Discharge Coordination Time (in mins): 30 Quality: Safe Use of Opioids Does Pt have an Active Cancer Diagnosis on the Problem List?: No Quality: Stroke Does the patient have a stroke diagnosis?: No Physical Exam Vital Signs: Vital Signs: Last Vital Signs Temp 97.3 F 02/15/24 15:06 Pulse 70 02/15/24 15:06 Resp 18 02/15/24 15:06 BP 125/58 L 02/15/24 15:06 Pulse Ox 92 02/15/24 15:06 O2 Del Method Room Air 02/15/24 15:06 O2 Flow Rate 2 02/15/24 14:24 BMI result Body Mass Index 28.3 Const: General: comfortable, no acute distress and alert Orientation/consciousness: patient oriented x3 GI: Other: dressings clean and intact Inspection: No distended Palpation (GI): Soft to palpation and no guarding Skin: General skin exam: no rashes or lesions noted Neuro: General: patient oriented x3 and moves all extremities DS: Data Data Completed and Pending Pending studies at discharge: Pending at discharge 02/15/24 13:46 Surgical [PTH] Routine Discharge Plan Discharge Patient Disposition: Home, Self-Care Referrals: Ashutosh Asif MD [Primary Care Provider] - 1 Week Aly Franco MD [Physician] - 1 Week Discharge Medications: New oxycodone 5 mg tablet 5 mg PO Q8H PRN (Reason: pain) Qty: 30 0RF Rx Instructions: Partial Fill upon patient request. Discharge Orders: Discharge Order (Routine); Ordered 02/15/24 Ordered By: Aly Franco Diet: Advance to usual diet Activity on Discharge: No heavy lifting Stand Alone Forms: Patient Portal Discharge page Print Language: Kiswahili Activity Restrictions/Additional Instructions: Ice to wound 20 minutes several times today and tomorrow. May shower in 2 days. Remove outside dressing only. Leave Steri-Strips intact. No strenuous activities Care Plan Goals: Convalescence surgery Health Concerns: No acute issues Plan of Treatment: Continued convalescence Assessment: Returned to baseline Discharge Date/Time: 02/15/24 18:51
[2024-02-15] MEDS: HYDROmorphone HCl 0.5 MG/0.5 ML SYRINGE IVPUSH (15:10)
== END 2024-02-15 18:51 | disposition home or self-care (01) ==
LOC: HO.ED 17:40 → HO.EDOVER 21:18 → HO.S3 02-15 08:14
PROVIDERS: Nurse Practitioner Family; Admitting Provider Surgery; Emergency Provider Emergency Medicine Emergency Medical Services; PCP Internal Medicine; Visit Provider Surgery
PROC: 0DTJ4ZZ Resection of Appendix, Percutaneous Endoscopic Approach (ICD-10-PCS; CPT 44970; principal; 2024-02-15 13:00)
DX: K35.80 Unspecified acute appendicitis (principal); R10.31 Right lower quadrant pain
CPT/HCPCS: 44970; 36415; 74177; 80048; 80076; 81001; 83690; 85025; 87086; 87088; 87186; 88304; 88342; 96361; 96365; 96375; 99221; 99285; J0690; J0696; J1100; J1170; J1885; J2250; J2270; J2405; J2704; J2795; J3010; J7120; Q9967

== ENCOUNTER → 2024-02-14 21:07 | Outpatient (BNV) | payer OTHER, SELFPAY | PROVIDERS: Admitting Provider Surgery; Emergency Provider Emergency Medicine Emergency Medical Services; PCP Internal Medicine; Visit Provider Surgery | DX: K35.80 Unspecified acute appendicitis (principal) | CPT/HCPCS: 44970; 99223; 99499 ==